=== PATIENT | male | born 1965 | race Caucasian/White ===

== ENCOUNTER → 2017-01-29 | Outpatient (CLI) | payer OTHER ==
[~2017-01-29] MED LIST: AMOX500C3 PO; AMOX875T PO; ASPI81TA28 PO; ATOR-22 PO; CALCCHW17 PO; CLC/300 PO; ERGO500037 PO; GABA-113 PO; GLIP-199 PO; HYDR-3419 PO; HYDR-4330 PO; INSDGI SC; INSDGIPEN SC; LISI-461 PO; METF-384 PO; METO25TA56 PO; MULT-506 PO; NRN/600 PO; NVLG SC; NVLGI/PEN SC; PENI-73 PO; PENI-82 PO; PRAV20TA PO; RANI150T3 PO; SIMV20TA2 PO; SULF800T23 PO
--- NOTE | 2017-01-29 16:33 | DIAGNOSTIC IMAGING REPORT ---
RIGHT FOOT MIN 3 VIEWS ROUTINE CLINICAL HISTORY: NON-HEALING WOUND ON RIGHT FOOT Right COMPARISON: None. DISCUSSION: The bones and joint spaces appear intact. There is no evidence of fracture, dislocation or bony disease. There is no evidence for soft tissue swelling. IMPRESSION: Negative study. Electronically signed by: Valeriy Dutta M.D. 01/29/2017 4:32 PM Dictated Date/Time: 01/29/2017 4:30 PM
== END | disposition home or self-care (01) ==
LOC: C.RAD 16:09
PROVIDERS: ATTEND Emergency Medicine
DX: S91.309A Unspecified open wound, unspecified foot, initial encounter (principal); X58.XXXA Exposure to other specified factors, initial encounter

== ENCOUNTER → 2017-03-13 | Outpatient (CLI) | payer OTHER ==
[~2017-03-13] MED LIST changes: +CHOL1CAP95 PO; -CLC/300 PO; +VANC1INJ72 IV
--- NOTE | 2017-03-13 17:19 | DIAGNOSTIC IMAGING REPORT ---
LUMBAR SPINE 5 VIEWS HISTORY: BACK PAIN, WENT TO LAB FIRST COMPARISON: None. FINDINGS: There is no fracture. No subluxation. Mild disc space throughout the lumbar spine. Mild facet degenerative changes seen within the lower lumbar spine. Small endplate osteophytes seen throughout the lumbar spine. IMPRESSION: No fracture or subluxation within the lumbar spine. Mild degenerative disc disease throughout the lumbar spine. Electronically signed by: Hector Rasheed M.D. 03/13/2017 5:17 PM Dictated Date/Time: 03/13/2017 5:15 PM
[2017-03-13 17:39] LABS: BASO % 0.6 %; BASO ABS # 0.05 K/uL (0-0.2); COMPLETE YES; EOS % 1.4 %; HEMATOCRIT 44.6 % (42-52); IG% 0.2 %; LYMPH % 38.8 %; LYMPH ABS # 3.41 K/uL (1.2-3.4); MEAN CELL VOLUME 96.1 fL (80-100); MEAN CORPUSCULAR HEMOGLOBIN 34.1 pg (25-34); MEAN CORPUSCULAR HGB CONC 35.4 g/dl (32-36); MEAN PLATELET VOLUME 10.5 fL (7.4-10.4); MONO % 5.6 %; NEUT % 53.4 %; PLATELET COUNT 195 K/uL (130-400); RED BLOOD COUNT 4.64 M/uL (4.7-6.1); WHITE BLOOD COUNT 8.78 K/uL (4.8-10.8)
[2017-03-13 17:57] LABS: ALT/SGPT 68 U/L (12-78); BLOOD UREA NITROGEN 17 mg/dl (7-18); BUN/CREATININE RATIO 17.7 (10-20); CARBON DIOXIDE 28 mmol/L (21-32); CHLORIDE 100 mmol/L (98-107); CHOLESTEROL 174 mg/dl (0-200); CREATININE 0.94 mg/dl (0.60-1.40); GLUCOSE 231 mg/dl (70-99); SODIUM 136 mmol/L (136-145)
[2017-03-13 18:00] LABS: ALB/GLOB RATIO 1.1 (0.9-2); ALKALINE PHOSPHATASE 77 U/L (45-117); AST/SGOT 28 U/L (15-37); CHOLESTEROL/HDL RATIO 3.3; HDL CHOLESTEROL 52 mg/dl; LDL CHOLESTEROL CALCULATED 88 mg/dl; TRIGLYCERIDES 170 mg/dl (0-150); VERY LOW DENSITY LIPOPROT CALC 34 mg/dl
[2017-03-13 18:07] LABS: CALCIUM 9.6 mg/dl (8.5-10.1)
[2017-03-13 18:33] LABS: RATIO 58.4 mcg/mg (0-30.0)
[2017-03-14 06:51] LABS: ESTIMATED AVERAGE GLUCOSE 258 mg/dl; HA1C FLAG Normal (Normal)
== END | disposition home or self-care (01) ==
LOC: C.LAB 16:34
DX: M54.5 Low back pain (principal); K21.9 Gastro-esophageal reflux disease without esophagitis; F32.9 Major depressive disorder, single episode, unspecified; E11.9 Type 2 diabetes mellitus without complications; E78.5 Hyperlipidemia, unspecified; I10 Essential (primary) hypertension; G62.9 Polyneuropathy, unspecified

== ENCOUNTER 2017-03-25 09:31 | Emergency (ER) | payer OTHER ==
[~2017-03-25] VITALS: Ht 195.6 cm; Wt 107.5 kg
[~2017-03-25 09:31] MED LIST changes: -AMOX875T PO; -ASPI81TA28 PO; -ATOR-22 PO; -CALCCHW17 PO; -CHOL1CAP95 PO; -ERGO500037 PO; -HYDR-4330 PO; -INSDGI SC; -INSDGIPEN SC; -LISI-461 PO; -METF-384 PO; -METO25TA56 PO; -MULT-506 PO; -NRN/600 PO; -NVLG SC; -NVLGI/PEN SC; -PENI-73 PO; -PENI-82 PO; -PRAV20TA PO; -RANI150T3 PO; -SULF800T23 PO; -VANC1INJ72 IV
[2017-03-25 09:38] VITALS: Ht 195.6 cm; Wt 107.5 kg
[2017-03-25 10:00] VITALS: O2SAT 99
[2017-03-25] MEDS ORDERED: NITROGLYCERIN 0.4 MG SL PER TAB CHARGE SL STA (10:46)
[2017-03-25] MEDS ORDERED: ASPIRIN 324 MG CHEW PO STA (10:46)
[2017-03-25 10:56] LABS: BASO % 0.4 %; BASO ABS # 0.03 K/uL (0-0.2); COMPLETE YES; EOS % 0.7 %; HEMATOCRIT 46.4 % (42-52); IG% 0.1 %; LYMPH % 30.7 %; LYMPH ABS # 2.32 K/uL (1.2-3.4); MEAN CELL VOLUME 96.5 fL (80-100); MEAN CORPUSCULAR HEMOGLOBIN 33.5 pg (25-34); MEAN CORPUSCULAR HGB CONC 34.7 g/dl (32-36); MEAN PLATELET VOLUME 10.1 fL (7.4-10.4); MONO % 6.6 %; NEUT % 61.5 %; PLATELET COUNT 226 K/uL (130-400); RED BLOOD COUNT 4.81 M/uL (4.7-6.1); WHITE BLOOD COUNT 7.56 K/uL (4.8-10.8)
[2017-03-25 11:06] LABS: ALT/SGPT 65 U/L (12-78); AST/SGOT 22 U/L (15-37); BLOOD UREA NITROGEN 12 mg/dl (7-18); BUN/CREATININE RATIO 10.7 (10-20); CALCIUM 9.3 mg/dl (8.5-10.1); CARBON DIOXIDE 30 mmol/L (21-32); CHLORIDE 103 mmol/L (98-107); GLUCOSE 214 mg/dl (70-99); INR 0.9 (0.9-1.1); POTASSIUM 4.1 mmol/L (3.5-5.1); SODIUM 138 mmol/L (136-145)
[2017-03-25 11:09] LABS: URINE APPEARANCE CLEAR (CLEAR); URINE BILIRUBIN NEG (NEG); URINE COLOR DK YELLOW; URINE NITRITE NEG (NEG); URINE PH 5.5 (4.5-7.5); URINE SPECIFIC GRAVITY 1.033 (1.000-1.030); UROBILINOGEN NEG (NEG); ZZUR CULT IF INDIC CLEAN CATCH NO
[2017-03-25 11:15] LABS: MANUAL MICROSCOPIC REQUIRED? NO; REVIEW REQ? NO
[2017-03-25 11:16] LABS: ALB/GLOB RATIO 1.2 (0.9-2); ALKALINE PHOSPHATASE 78 U/L (45-117); C-REACTIVE PROTEIN 0.44 mg/dl (0-0.29); THYROID STIMULATING HORMONE 0.781 uIu/ml (0.300-4.500)
--- NOTE | 2017-03-25 11:17 | DIAGNOSTIC IMAGING REPORT ---
CHEST ONE VIEW PORTABLE CLINICAL HISTORY: chest pain dyspnea COMPARISON STUDY: No previous studies for comparison. FINDINGS: The bones soft tissues and hemidiaphragms are normal. The cardiomediastinal silhouette is normal. The lungs are clear. The pulmonary vasculature is normal. IMPRESSION: Negative chest. Electronically signed by: Valeriy Dutta M.D. 03/25/2017 11:16 AM Dictated Date/Time: 03/25/2017 11:16 AM
--- NOTE | 2017-03-25 11:21 | EMERGENCY ROOM VISIT NOTE ---
History First contact with patient: 10:25 Chief Complaint: CARDIAC ASSESSMENT Stated Complaint: TIGHTNESS IN CHEST Nursing Triage Summary: Patient c/o mid chest tightness for 1 hours. SOB, Nausea, dizziness 10/10. Now 5/10. "I can feel my blood pressure is rosa because I have pressure in my face. Face red History of Present Illness The patient is a 52 year old male who presents to the Emergency Room with complaints of chest pain. The patient states that he developed chest pain approximately 90 minutes ago. He states that he describes it as a squeezing or pressure. He rates his discomfort a 5/10. The pain does not radiate. The patient states he had associated dizziness and headache. He states he also felt palpitations. He reported feeling some shortness of breath. He denies any earache, sore throat, cough or fever. He denies any abdominal pain, nausea or vomiting. The patient is a diabetic and has hypertension, hyperlipidemia and is a smoker. His father and brother of congestive heart failure. He believes he had a normal stress test a few years ago. Review of Systems A 10 system review of systems was completed with positives and pertinent negatives listed in the HPI. Past Medical/Surgical History Medical Problems: (1) Diabetes (2) Hyperlipidemia (3) Hypertension (4) Neuropathy Social History Smoking Status: Current Every Day Smoker Drug Use: none, marijuana Marital Status: Occupation Status: disabled Current/Historical Medications Scheduled Amoxicillin (Amoxil), 500 MG PO TID Aspirin (Aspirin Ec), 81 MG PO DAILY Gabapentin (Neurontin), 600 MG PO BID Glipizide (Glipizide Er), 10 MG PO BID Lisinopril (Lisinopril), 10 MG PO BID Metformin Hcl (Glucophage), 1,000 MG PO BID Metoprolol Tartrate (Lopressor) (Lopressor), 25 MG PO BID Ranitidine Hcl (Zantac), 150 MG PO BID Simvastatin (Zocor), 20 MG PO DAILY Scheduled PRN Hydrocodon/Acetaminophen 5MG/300MG (Vicodin (5MG/300MG)), 1 TAB PO Q6H PRN for Pain Allergies Coded Allergies: Ciprofloxacin (Verified Allergy, Intermediate, shortness of breath, 03/25/17 ) Physical Exam Vital Signs Date Time Temp Pulse Resp B/P Pulse Ox O2 Delivery O2 Flow Rate FiO2 03/25/17 13:06 92 18 128/79 100 03/25/17 12:25 93 18 137/74 98 Room Air 03/25/17 11:35 85 18 113/79 99 Room Air 03/25/17 11:22 90 18 127/75 97 Room Air 03/25/17 11:17 89 18 136/83 98 Room Air 03/25/17 11:11 84 18 153/91 99 Room Air 03/25/17 10:47 87 18 144/91 98 Room Air 03/25/17 10:00 84 18 153/94 98 Room Air 03/25/17 10:00 99 Room Air 03/25/17 09:55 84 03/25/17 09:42 100 Room Air 03/25/17 09:38 36.8 86 16 162/90 99 Room Air Physical Exam VITALS: Vitals are noted on the nurse's note and reviewed by myself. Vital signs stable. The patient is afebrile. He is not tachycardic, tachypneic or hypoxic. GENERAL: This is a 52-year-old male, in no acute distress, nondiaphoretic, well- developed well-nourished. SKIN: The skin was without rashes, erythema, edema, or bruising. There is no tenting of the skin. Capillary reflex less than 2 seconds. HEAD: Normocephalic atraumatic. EARS: The external ears are normal in appearance. EYES: Pupils equal round and reactive to light and accommodation. Conjunctivae without injection, sclerae without icterus. Extraocular movements intact. NOSE: Patent, turbinates without inflammation or discharge. MOUTH: Mucous membranes moist. Tonsils are not enlarged. Pharynx without erythema or exudate. Uvula midline. Airway patent. Tongue does not deviate. NECK: Supple without nuchal rigidity. No lymphadenopathy. No thyromegaly. Cervical spine is nontender. No JVD. HEART: Regular rate and rhythm without murmurs gallops or rubs. LUNGS: Clear to auscultation bilaterally without wheezes, rales or rhonchi. No retractions or accessory muscle use. ABDOMEN: Positive bowel sounds x 4. Soft, nontender, without masses or organomegaly. MUSCULOSKELETAL: No muscle atrophy, erythema, or edema noted. Full range of motion in all extremities. Normal gait. Strength 5/5 throughout. NEURO: Patient was alert and oriented to person place and time. No focal neurological deficits. Medical Decision & Procedures ER Provider Diagnostic Interpretation: CHEST ONE VIEW PORTABLE CLINICAL HISTORY: chest pain dyspnea COMPARISON STUDY: No previous studies for comparison. FINDINGS: The bones soft tissues and hemidiaphragms are normal. The cardiomediastinal silhouette is normal. The lungs are clear. The pulmonary vasculature is normal. IMPRESSION: Negative chest. Laboratory Results 03/25/17 09:54 Red Blood Count 4.81, Mean Corpuscular Volume 96.5, Mean Corpuscular Hemoglobin 33.5, Mean Corpuscular Hemoglobin Concent 34.7, Mean Platelet Volume 10.1, Neutrophils (%) (Auto) 61.5, Lymphocytes (%) (Auto) 30.7, Monocytes (%) (Auto) 6.6, Eosinophils (%) (Auto) 0.7, Basophils (%) (Auto) 0.4, Neutrophils # (Auto) 4.65, Lymphocytes # (Auto) 2.32, Monocytes # (Auto) 0.50, Eosinophils # (Auto) 0.05, Basophils # (Auto) 0.03 03/25/17 09:54 Test 03/25/17 09:54 03/25/17 12:30 White Blood Count 7.56 K/uL (4.8-10.8) Red Blood Count 4.81 M/uL (4.7-6.1) Hemoglobin 16.1 g/dL (14.0-18.0) Hematocrit 46.4 % (42-52) Mean Corpuscular Volume 96.5 fL (80-100) Mean Corpuscular Hemoglobin 33.5 pg (25-34) Mean Corpuscular Hemoglobin Concent 34.7 g/dl (32-36) Platelet Count 226 K/uL (130-400) Mean Platelet Volume 10.1 fL (7.4-10.4) Neutrophils (%) (Auto) 61.5 % Lymphocytes (%) (Auto) 30.7 % Monocytes (%) (Auto) 6.6 % Eosinophils (%) (Auto) 0.7 % Basophils (%) (Auto) 0.4 % Neutrophils # (Auto) 4.65 K/uL (1.4-6.5) Lymphocytes # (Auto) 2.32 K/uL (1.2-3.4) Monocytes # (Auto) 0.50 K/uL (0.11-0.59) Eosinophils # (Auto) 0.05 K/uL (0-0.5) Basophils # (Auto) 0.03 K/uL (0-0.2) RDW Standard Deviation 44.4 fL (36.4-46.3) RDW Coefficient of Variation 12.6 % (11.5-14.5) Immature Granulocyte % (Auto) 0.1 % Immature Granulocyte # (Auto) 0.01 K/uL (0.00-0.02) Prothrombin Time 10.0 SECONDS (9.0-12.0) Prothromb Time International Ratio 0.9 (0.9-1.1) Activated Partial Thromboplast Time 26.7 SECONDS (21.0-31.0) Partial Thromboplastin Ratio 1.0 Urine Color DK YELLOW Urine Appearance CLEAR (CLEAR) Urine pH 5.5 (4.5-7.5) Urine Specific [place] 1.033 (1.000-1.030) Urine Protein NEG (NEG) Urine Glucose (UA) 3+ (NEG) Urine Ketones 1+ (NEG) Urine Occult Blood NEG (NEG) Urine Nitrite NEG (NEG) Urine Bilirubin NEG (NEG) Urine Urobilinogen NEG (NEG) Urine Leukocyte Esterase NEG (NEG) Anion Gap 5.0 mmol/L (3-11) Est Creatinine Clear Calc Drug Dose 108.4 ml/min Estimated GFR () 89.6 Estimated GFR (Non- 77.3 BUN/Creatinine Ratio 10.7 (10-20) Calcium Level 9.3 mg/dl (8.5-10.1) Total Bilirubin 0.7 mg/dl (0.2-1) Aspartate Amino Transf (AST/SGOT) 22 U/L (15-37) Alanine Aminotransferase (ALT/SGPT) 65 U/L (12-78) Alkaline Phosphatase 78 U/L (45-117) Total Creatine Kinase 149 U/L (39-308) Creatine Kinase MB 1.3 ng/ml (0.5-3.6) Creatine Kinase MB Ratio (0-3.0) C-Reactive Protein 0.44 mg/dl (0-0.29) Total Protein 8.2 gm/dl (6.4-8.2) Albumin 4.4 gm/dl (3.4-5.0) Globulin 3.8 gm/dl (2.5-4.0) Albumin/Globulin Ratio 1.2 (0.9-2) Thyroid Stimulating Hormone (TSH) 0.781 uIu/ml (0.300-4.500) Troponin I < 0.015 ng/ml (0-0.045) Medications Administered Medications (Trade) Dose Ordered Sig/Maylin Route Start Time Stop Time Status Last Admin Dose Admin Aspirin (Aspirin Chew) 324 mg NOW STAT PO 03/25/17 10:46 03/25/17 10:49 DC 03/25/17 10:57 324 MG Nitroglycerin (Nitrostat Tab) 0.4 mg PRN STAT SL 03/25/17 10:46 03/25/17 10:49 DC 03/25/17 10:58 0.4 MG Procedure The patient was monitored on a laboratory monitor. They maintained a normal sinus rhythm without ectopy. ECG Indication: chest pain Rate (beats per minute): 84 Rhythm: normal sinus Findings: no acute ischemic change Comparison ECG Date: no prior available ED Course The patient was seen and examined. Previous visits were reviewed. The patient does not have a fever or leukocytosis. He does not have any significant electrolyte abnormalities. Glucose is 214. He does have a history of diabetes. Initial and repeat troponins were negative. TSH was within normal limits. INR was 0.9. Ketones were found in the urine. Chest x-ray does not reveal any acute abnormality EKG does not reveal any acute arrhythmia or ischemia The patient presents to the emergency department with chest pressure that started approximately 90 minutes prior to arrival. He was given aspirin and nitroglycerin. The nitroglycerin relieved his pain. The patient is a smoker with a history of diabetes, hypertension and hyperlipidemia. He does have a family history of CHF and cardiac disease. Given this, I highly recommended that the patient be admitted to the hospital for further evaluation and management. The patient stated that he would not stay in the hospital. He stated he wanted to be able to go outside to smoke. I advised him that he would not be able to in the hospital. I then at least encouraged repeating a troponin and potentially speaking to cardiology for a possible stress test. The patient states that he cannot walk on a treadmill due to an ulcer on his foot. I talked about the possibility of a dobutamine stress test. The patient refuses this and states that he does not want a chemical stress test. At this time, the patient at least agreed to having a repeat troponin drawn. This was done and was negative. I again attempted to talk to the patient about staying in the hospital for further evaluation and management given his presentation, relief with nitroglycerin and significant risk factors. Again the patient refuses. He signed out AGAINST MEDICAL ADVICE. I advised him that the potential for cardiac disease, pulmonary issue or even is quite possible and he acknowledges understanding and would still like to sign out AGAINST MEDICAL ADVICE. He was advised to follow-up with his family doctor for further evaluation and management. He should return to the ER if any worsening symptoms. The case was discussed with Dr. Guillory who agrees with the assessment and treatment plan. Medical Decision DIFFERENTIAL DIAGNOSIS: Aortic dissection, myocarditis, pericarditis, cervical disc disease, costochondritis, herpes zoster, rib fracture, pleuritis, pneumonia , pulmonary embolus, tension pneumothorax, anxiety disorder, somatoform disorder , choledocholithiasis, status, esophagitis, esophageal spasm, esophageal reflux , esophageal rupture, pancreatitis, peptic ulcer disease, cardiac ischemia, ST elevation [place], acute coronary syndrome, arrhythmia, coronary artery vasospasm. vavular heart disease, coronary artery disease, among others. Impression Primary Impression: Substernal chest pain Departure Information Referrals Marcelo Landeros III, CRNP (PCP) Patient Instructions My [facility]
[2017-03-25 13:06] VITALS: BP 128/79; PULSE 92; O2SAT 100
[2017-04-04] MEDS ORDERED: HYDR-4330 PO (07:46)
[2017-04-04] MEDS ORDERED: PRAV20TA PO (07:46)
[2017-04-07] MEDS ORDERED: PENI-73 PO (11:29)
[2017-05-16] MEDS ORDERED: INSDGI SC (13:44)
[2017-05-16] MEDS ORDERED: ERGO500037 PO (13:44)
[2017-06-03] MEDS ORDERED: NVLG SC (08:50)
[2017-06-05] MEDS ORDERED: SULF800T23 PO (14:24)
[2017-06-05] MEDS ORDERED: PENI-82 PO (14:24)
[2017-07-31] MEDS ORDERED: CALCCHW17 PO (07:46)
[2017-07-31] MEDS ORDERED: MULT-506 PO (07:46)
[2017-07-31] MEDS ORDERED: NRN/600 PO (07:46)
[2017-07-31] MEDS ORDERED: RANI150T3 PO (14:24)
[2017-07-31] MEDS ORDERED: ASPI81TA28 PO (14:25)
[2017-07-31] MEDS ORDERED: METF-384 PO (14:25)
[2017-07-31] MEDS ORDERED: METO25TA56 PO (14:25)
[2017-07-31] MEDS ORDERED: LISI-461 PO (14:25)
[2017-09-01] MEDS ORDERED: CHOL1CAP95 PO (14:49)
[2017-09-01] MEDS ORDERED: INSDGI SC (14:49)
[2017-10-22] MEDS ORDERED: VANC1INJ72 IV (09:00)
== END 2017-03-25 13:08 | disposition left against medical advice (07) ==
LOC: C.EDB 09:33
DX: R07.2 Precordial pain (principal); R42 Dizziness and giddiness; R51 Headache; E11.9 Type 2 diabetes mellitus without complications; E78.5 Hyperlipidemia, unspecified; I10 Essential (primary) hypertension; Z79.82 Long term (current) use of aspirin; Z79.84 Long term (current) use of oral hypoglycemic drugs; Z79.899 Other long term (current) drug therapy; Z82.49 Family history of ischemic heart disease and other diseases of the circulatory system; F17.200 Nicotine dependence, unspecified, uncomplicated

== ENCOUNTER → 2017-04-03 | Outpatient (CLI) | payer OTHER ==
[~2017-04-03] MED LIST changes: +AMOX875T PO; +ASPI81TA28 PO; +ATOR-22 PO; +CALCCHW17 PO; +CHOL1CAP95 PO; +ERGO500037 PO; +HYDR-4330 PO; +INSDGI SC; +INSDGIPEN SC; +LISI-461 PO; +METF-384 PO; +METO25TA56 PO; +MULT-506 PO; +NRN/600 PO; +NVLG SC; +NVLGI/PEN SC; +PENI-73 PO; +PENI-82 PO; +PRAV20TA PO; +RANI150T3 PO; +SULF800T23 PO; +VANC1INJ72 IV
== END | disposition home or self-care (01) ==
LOC: C.LAB 13:20
PROVIDERS: ATTEND Physician Assistant
DX: Z13.9 Encounter for screening, unspecified (principal)

== ENCOUNTER → 2017-04-11 | Day surgery (SDC) | payer OTHER ==
[2017-04-04 07:51] VITALS: Ht 195.6 cm; Wt 109.1 kg
[~2017-04-11] VITALS: Ht 195.6 cm; Wt 109.1 kg
[~2017-04-11] MED LIST changes: -AMOX500C3 PO; +FENTANYL CITRATE INJ 50 MCG/1 ML 2 ML VIAL ONE; -GABA-113 PO; -HYDR-3419 PO; +LIDOCAINE HCL 2% 2 ML VIAL (20MG/ML) ONE; +MIDAZOLAM HCL 1 MG/ML 2ML VIAL ONE; +ONDANSETRON INJ 2 MG/ML 2 ML VIAL ONE; +PROPOFOL IV EMULSION 10 MG/ML 20 ML VIAL IV ONE; -SIMV20TA2 PO; +SODIUM CHLORIDE 0.9% 500ML 500 ML IV ONE
[2017-04-11 11:21] VITALS: TEMP 36.9
--- NOTE | 2017-04-11 11:56 | Endo History and Physical ---
History & Physical Date of Service: April 11, 2017. Chief Complaint: ACID REFLUX Referring Physician: Marcelo Landeros History of Present Illness 52 yo CM who presents for EGD secondary to GERD. Past Surgical History Hx Cardiac Surgery: No Hx Internal Defibrillator: No Hx Pacemaker: No Hx Abdominal Surgery: Yes (INGUINAL HERNIA REPAIR) Hx of Implantable Prosthesis: No Hx Post-Op Nausea and Vomiting: Yes Hx Cancer Surgery: No Hx Thoracic Surgery: No Hx Orthopedic: No Hx Urinary Tract Surgery: No Family History Polyp Social History Smoking Status: Current Every Day Smoker Hx Substance Use: No Hx Alcohol Use: No Allergies Coded Allergies: Ciprofloxacin (Verified Allergy, Intermediate, shortness of breath, ) Current Medications Reported Home Medications Medications Dose Route/Sig Max Daily Dose Days Date Category Veetids (Penicillin V Potassium) 250 Mg Tab 500 Mg PO QID 10 04/07/17 Reported Multivitamin (Multivitamins) Tab 1 Tab PO DAILY 04/04/17 Reported Lortab 5-325 mg (Hydrocodone-Acetaminophen) 1 Tab Tab 1-2 Tabs PO Q6 PRN 04/04/17 Reported Pravachol (Pravastatin Sodium) 20 Mg Tab 20 Mg PO QPM 04/04/17 Reported Tums Ultra 1000 (Calcium Carbonate (Antacid)) 1,000 Mg Chw 1 Tab PO UD PRN 04/04/17 Reported Neurontin (Gabapentin) 600 Mg Tab 600 Mg PO BID 04/04/17 Reported Lopressor (Metoprolol Tartrate) 25 Mg Tab 25 Mg PO BID 01/22/17 Reported Lisinopril 10 Mg Tab 10 Mg PO QAM 01/22/17 Reported Aspirin Ec (Aspirin) 81 Mg Tab 81 Mg PO QPM 01/22/17 Reported Glucophage (Metformin Hcl) 1,000 Mg Tab 1,000 Mg PO BID 01/22/17 Reported Glipizide Er (Glipizide) 10 Mg Tab 10 Mg PO BID 01/22/17 Reported Zantac (Ranitidine HCl) 150 Mg Tab 150 Mg PO BID 01/22/17 Reported Vital Signs Weight (Kilograms): 109.09 Height (Feet): 6 Height (Inches): 5 Date Time Temp Pulse Resp B/P Pulse Ox O2 Delivery O2 Flow Rate FiO2 04/11/17 11:21 36.9 102 20 131/86 97 Room Air Physical Exam General Appearance: WD/WN, no apparent distress Respiratory/Chest: Auscultation: breath sounds normal Cardiovascular: Heart Auscultation: RRR Abdomen: Bowel Sounds: normal Inspection & Palpation: soft, non-distended, no tenderness, guarding & rebound Assessment and Plan Assessment: 52 yo CM who presents for EGD secondary to GERD. Plan: Proceed with EGD.
--- NOTE | 2017-04-11 12:22 | Discharge Instructions ---
Endoscopy Patient Instructions Date / Procedure(s) Performed April 11, 2017. EGD Allergy Information Coded Allergies: Ciprofloxacin (Verified Allergy, Intermediate, shortness of breath, ) Discharge Date / Findings April 11, 2017. Gastritis s/p biopsies Hiatal hernia Esophageal biopsies Medication Instructions Restart Stopped Medication(s): OK to resume all medications today as prescribed Reported Home Medications Medications Dose Route/Sig Max Daily Dose Days Date Category Veetids (Penicillin V Potassium) 250 Mg Tab 500 Mg PO QID 10 04/07/17 Reported Multivitamin (Multivitamins) Tab 1 Tab PO DAILY 04/04/17 Reported Lortab 5-325 mg (Hydrocodone-Acetaminophen) 1 Tab Tab 1-2 Tabs PO Q6 PRN 04/04/17 Reported Pravachol (Pravastatin Sodium) 20 Mg Tab 20 Mg PO QPM 04/04/17 Reported Tums Ultra 1000 (Calcium Carbonate (Antacid)) 1,000 Mg Chw 1 Tab PO UD PRN 04/04/17 Reported Neurontin (Gabapentin) 600 Mg Tab 600 Mg PO BID 04/04/17 Reported Lopressor (Metoprolol Tartrate) 25 Mg Tab 25 Mg PO BID 01/22/17 Reported Lisinopril 10 Mg Tab 10 Mg PO QAM 01/22/17 Reported Aspirin Ec (Aspirin) 81 Mg Tab 81 Mg PO QPM 01/22/17 Reported Glucophage (Metformin Hcl) 1,000 Mg Tab 1,000 Mg PO BID 01/22/17 Reported Glipizide Er (Glipizide) 10 Mg Tab 10 Mg PO BID 01/22/17 Reported Zantac (Ranitidine HCl) 150 Mg Tab 150 Mg PO BID 01/22/17 Reported Provider Instructions Activity Restrictions - No exercising or heavy lifting for 24 hours. - Do not drink alcohol the day of the procedure. - Do not drive a car or operate machinery until the day after the procedure. - Do not make any important decisions or sign important papers in 24 hours after the procedure. Following Day: - Return to full activity which may include returning to work/school. Diet Start your diet with liquids and light foods (jello, soup, juice, toast). Then eat your usual diet if not nauseated. Treatment For Common After Affects For mild abdominal pain, bloating, or excessive gas: - Rest - Eat lightly - Lie on right side Follow-Up Information Follow-up with as scheduled Anesthesia Information What You Should Know You have had a procedure that required some medicine to reduce anxiety and discomfort. This treatment is called moderate sedation. After receiving the treatment, you may be sleepy, but you will be able to breathe on your own. The effects of the treatment may last for several hours. Follow these instructions along with Activity/Diet recommendations noted above: * Do NOT do anything where dizziness or clumsiness would be dangerous. * Rest quietly at home today, then you can be up and about tomorrow. * Have a responsible person stay with you the rest of today. * You may have had an I.V. today. If so, you may take the dressing off later today. Recommendations Call your doctor if: * Trouble breathing * Continuous vomiting for more than 24 hours * Temperature above 101 degrees * Severe abdominal pain or bloating * Pain not relieved by pain medicine ordered * There is increased drainage or redness from any incision * A large amount of rectal bleeding greater than 2-3 tablespoons. (If you had a polyp/s removed or have hemorrhoids, a small amount of blood - from the rectum is to be expected.) * You have any unanswered questions or concerns. IN THE EVENT OF A SERIOUS EMERGENCY, GO TO THE NEAREST EMERGENCY ROOM Your discharge instructions were prepared by provider Ady Hernandez. Patient Instructions Signature Page Tal Mendoza Patient (or Guardian) Signature/Date: I have read and understand the instructions given to me by my caregivers. Caregiver/RN/Doctor Signature/Date: The above-named patient and/or guardian has received patient instructions on this date. + Original Patient Signature Page (only) stays with chart. Please make copy for patient.
--- NOTE | 2017-04-11 12:22 | GI REPORT ---
Procedure Date: 04/11/2017 11:57 AM Procedure: Upper GI endoscopy Indications: Esophageal reflux Medicines: Monitored Anesthesia Care Complications: No immediate complications. Estimated Blood Loss: Estimated blood loss: none. Procedure: Pre-Anesthesia Assessment: - Prior to the procedure, a History and Physical was performed, and patient medications and allergies were reviewed. The patient's tolerance of previous anesthesia was also reviewed. The risks and benefits of the procedure and the sedation options and risks were discussed with the patient. All questions were answered, and informed consent was obtained. Prior Anticoagulants: The patient has taken no previous anticoagulant or antiplatelet agents. ASA Grade Assessment: II - A patient with mild systemic disease. After reviewing the risks and benefits, the patient was deemed in satisfactory condition to undergo the procedure. After obtaining informed consent, the endoscope was passed under direct vision. Throughout the procedure, the patient's blood pressure, pulse, and oxygen saturations were monitored continuously. The scope was introduced through the mouth, and advanced to the second part of duodenum. The upper GI endoscopy was accomplished without difficulty. The patient tolerated the procedure well. Findings: There were esophageal mucosal changes suspicious for short-segment Knight's esophagus present at the gastroesophageal junction. The maximum longitudinal extent of these mucosal changes was 2 cm in length. Mucosa was biopsied with a cold forceps for histology. One specimen bottle was sent to pathology. A small hiatus hernia was present. Localized mild inflammation characterized by erythema was found in the gastric antrum. Biopsies were taken with a cold forceps for histology. The examined duodenum was normal. Impression: - Esophageal mucosal changes suspicious for short-segment Knight's esophagus. Biopsied. - Small hiatus hernia. - Gastritis. Biopsied. - Normal examined duodenum. Recommendation: - Resume previous diet. - Continue present medications. - Await pathology results. - Return to GI office as previously scheduled. Ady Hernandez DO 04/11/2017 12:21:44 PM This report has been signed electronically. Note Initiated On: 04/11/2017 11:57 AM I attest to the content of the Intraoperative Record and orders documented therein, exceptions below
[2017-04-11 12:44] VITALS: BP 130/88; PULSE 90; O2SAT 96
--- NOTE | 2017-04-11 13:43 | Anesthesiology Progress Note ---
Anesthesia Post Op Note Date & Time April 11, 2017 at 13:43 Vital Signs Pain Intensity: 0 Vital Signs Past 12 Hours Date Time Temp Pulse Resp B/P Pulse Ox O2 Delivery O2 Flow Rate FiO2 04/11/17 12:44 90 20 130/88 96 Room Air 04/11/17 12:32 89 20 105/76 96 Room Air 04/11/17 12:25 92 20 130/85 97 Room Air 04/11/17 12:17 90 20 119/74 98 Diffusion Mask 04/11/17 11:21 36.9 102 20 131/86 97 Room Air Notes Mental Status: alert / awake / arousable, participated in evaluation Pt Amnestic to Procedure: Yes Nausea / Vomiting: adequately controlled Pain: adequately controlled Airway Patency, RR, SpO2: stable & adequate BP & HR: stable & adequate Hydration State: stable & adequate Anesthetic Complications: no major complications apparent
== END | disposition home or self-care (01) ==
LOC: C.GI 10:48
PROVIDERS: ATTEND Internal Medicine
DX: K21.9 Gastro-esophageal reflux disease without esophagitis (principal); K29.60 Other gastritis without bleeding; K44.9 Diaphragmatic hernia without obstruction or gangrene; F17.200 Nicotine dependence, unspecified, uncomplicated; Z79.82 Long term (current) use of aspirin

== ENCOUNTER → 2017-05-09 | Outpatient (CLI) | payer OTHER ==
[~2017-05-09] MED LIST changes: -FENTANYL CITRATE INJ 50 MCG/1 ML 2 ML VIAL ONE; -LIDOCAINE HCL 2% 2 ML VIAL (20MG/ML) ONE; -MIDAZOLAM HCL 1 MG/ML 2ML VIAL ONE; -ONDANSETRON INJ 2 MG/ML 2 ML VIAL ONE; -PENI-73 PO; -PROPOFOL IV EMULSION 10 MG/ML 20 ML VIAL IV ONE; -SODIUM CHLORIDE 0.9% 500ML 500 ML IV ONE
[2017-05-09 18:35] LABS: RATIO 26.2 mcg/mg (0-30.0)
== END | disposition home or self-care (01) ==
LOC: C.LABPVFM 13:35
PROVIDERS: ATTEND Nurse Practitioner Adult Health
DX: E11.40 Type 2 diabetes mellitus with diabetic neuropathy, unspecified (principal); E11.65 Type 2 diabetes mellitus with hyperglycemia; E78.5 Hyperlipidemia, unspecified; I10 Essential (primary) hypertension; M79.1 Myalgia

== ENCOUNTER → 2017-06-10 | Outpatient (CLI) | payer OTHER ==
[~2017-06-10] MED LIST changes: -GLIP-199 PO; -PRAV20TA PO; -VANC1INJ72 IV
[2017-06-10 18:25] LABS: BLOOD UREA NITROGEN 16 mg/dl (7-18)
== END | disposition home or self-care (01) ==
LOC: C.LABPVFM 15:05
PROVIDERS: ATTEND Emergency Medicine
DX: S91.301A Unspecified open wound, right foot, initial encounter (principal); X58.XXXA Exposure to other specified factors, initial encounter

== ENCOUNTER → 2017-06-13 | Outpatient (CLI) | payer OTHER ==
[~2017-06-13] MED LIST changes: +GADAVIST IV PRN
--- NOTE | 2017-06-13 11:53 | DIAGNOSTIC IMAGING REPORT ---
RIGHT LOWER EXT NONJOINT COMBO HISTORY: 52 years-old Male nonhealing wound of the right foot COMPARISON: Right foot radiographs 3 2016 TECHNIQUE: Multiplanar multisequence MRI of the right foot was obtained both with and without the use of 10.5 mL Gadavist. FINDINGS: There is a marker on the skin at site of ulcer which is seen at the level of the second metatarsal phalangeal joint with focal area of enhancing thickened skin with fluid is seen tracking along the Peroneus longus tendon at the level of the midfoot, only partially imaged. Increased T2/STIR signal measuring up to 1.3 x 2.1 cm in transverse and AP dimension respectively. There is a moderate amount of adjacent subcutaneous edema as well without signal abnormality, fracture or erosive changes seen within the adjacent second metatarsal head. There is a moderate amount of edema within the intrinsic plantar musculature of the foot along with associated moderate intrinsic muscular atrophy. No focal soft tissue collections are identified. There is mild first MTP joint and multidigit interphalangeal degenerative changes present. Small first MTP joint effusion is seen with associated multiple hammertoe deformities. IMPRESSION: 1. Small enhancing soft tissue ulcer of the plantar foot at the level of the second metatarsal head suggests cellulitis without associated marrow edema or evidence of osteomyelitis. 2. Moderate amount of edema within the intrinsic plantar musculature of the foot along with associated moderate muscular atrophy are nonspecific findings and may reflect myositis on a background of chronic denervation related atrophic changes. 3. Multifocal degenerative changes throughout the forefoot as above. The above report was generated using voice recognition software. It may contain grammatical, syntax or spelling errors. Electronically signed by: Milo Costa M.D. 06/13/2017 11:51 AM Dictated Date/Time: 06/13/2017 11:38 AM
== END | disposition home or self-care (01) ==
LOC: C.MRI 10:12
PROVIDERS: ATTEND Emergency Medicine
DX: L97.919 Non-pressure chronic ulcer of unspecified part of right lower leg with unspecified severity (principal); R60.0 Localized edema

== ENCOUNTER 2017-07-31 16:43 | Emergency (ER) | payer OTHER ==
[~2017-07-31] VITALS: Ht 195.6 cm; Wt 110.7 kg
[~2017-07-31 16:43] MED LIST changes: -AMOX875T PO; -ATOR-22 PO; -CHOL1CAP95 PO; -GADAVIST IV PRN; -INSDGIPEN SC; -NVLGI/PEN SC
[2017-07-31 16:45] VITALS: TEMP 36.9; Ht 195.6 cm; Wt 110.7 kg
[2017-07-31] MEDS ORDERED: ONDANSETRON INJ 2 MG/ML 2 ML VIAL IV STA (17:09)
[2017-07-31] MEDS ORDERED: SODIUM CHLORIDE 0.9% 1000ML 1,000 ML IV STA (17:09)
[2017-07-31] MEDS ORDERED: AMPICILLIN/SULBACTAM SOD INJ 3,000 MG in SODIUM CHLORIDE 0.9% 100ML 100 ML IV ONE (17:15)
[2017-07-31] MEDS: MoRPHine SULFATE 4 MG/ML 1 ML CARP\\VIAL IV PRN ×2 (17:30→18:32)
[2017-07-31 17:45] LABS: BASO % 0.1 %; BASO ABS # 0.01 K/uL (0-0.2); COMPLETE YES; HEMATOCRIT 46.9 % (42-52); IG% 0.2 %; LYMPH % 21.6 %; LYMPH ABS # 2.01 K/uL (1.2-3.4); MEAN CELL VOLUME 98.1 fL (80-100); MEAN CORPUSCULAR HEMOGLOBIN 34.7 pg (25-34); MEAN CORPUSCULAR HGB CONC 35.4 g/dl (32-36); MEAN PLATELET VOLUME 9.9 fL (7.4-10.4); MONO % 7.9 %; NEUT % 69.2 %; PLATELET COUNT 233 K/uL (130-400); RED BLOOD COUNT 4.78 M/uL (4.7-6.1); WHITE BLOOD COUNT 9.32 K/uL (4.8-10.8)
[2017-07-31] MEDS ORDERED: NVLGI/PEN SC (17:45)
[2017-07-31] MEDS ORDERED: INSDGIPEN SC (17:45)
[2017-07-31] MEDS ORDERED: ATOR-22 PO (17:45)
--- NOTE | 2017-07-31 17:58 | DIAGNOSTIC IMAGING REPORT ---
LEFT HAND 3 VIEWS HISTORY: left hand cat bite cellulitis COMPARISON: None. FINDINGS: There is no fracture or dislocation. Soft tissue swelling at the thenar region near the base of the thumb. No radiopaque foreign bodies. IMPRESSION: Soft tissue swelling near the base of the thumb. No fractures or radiopaque foreign bodies. Electronically signed by: Hector Rasheed M.D. 07/31/2017 5:57 PM Dictated Date/Time: 07/31/2017 5:55 PM
[2017-07-31 18:02] LABS: CALCIUM 11.1 mg/dl (8.5-10.1); CREATININE 1.1 mg/dl (0.60-1.40); POTASSIUM 4.5 mmol/L (3.5-5.1)
[2017-07-31] MEDS ORDERED: RABIES VACCINE (IMOVAX) HUMAN DIPL CELL 2.5 INTER.UNIT/ML SYR IM. ONE (18:45)
[2017-07-31] MEDS ORDERED: RABIES IMMUNE GLOBULIN (HUMAN) 150 INTER.UNIT/ML 2 ML VIAL IM. ONE (18:45)
[2017-07-31] MEDS ORDERED: SEPTRA DS HOME PACK 1 EA VIAL PO ONE (19:00)
[2017-07-31] MEDS ORDERED: ONDANSETRON HOME PACK 4MG OD TAB PO ONE (19:00)
[2017-07-31] MEDS ORDERED: AMOXICIL/CLAVU 875MG HOME PACK PO ONE (19:00)
[2017-07-31] MEDS ORDERED: NORCO 5/325MG HOME PACK PO ONE (19:00)
[2017-07-31] MEDS ORDERED: SULF800T23 PO (19:19)
[2017-07-31] MEDS ORDERED: AMOX875T PO (19:19)
[2017-07-31 19:31] VITALS: BP 163/75; PULSE 102; O2SAT 96
--- NOTE | 2017-07-31 21:39 | EMERGENCY ROOM VISIT NOTE ---
History Report prepared by Shannen: Carlos Cooper Under the Supervision of: Dr. Quinn Abraham M.D. First contact with patient: 16:52 Chief Complaint: EDEMA TO EXTREMITY Stated Complaint: HAND SWOLLEN History of Present Illness The patient is a 52 year old diabetic male who presents to the Emergency Room with complaints of worsening left hand pain that started 5 days ago. He says that he was [place] around 10 [place], and was bit by a cat on his left hand. The patient states that it is unknown whether the cat is owned by the people who own the farm, or if it is a wild stray outdoor cat. He notes that he did not have any issues for a week, but around 5 days ago, he started having worsening swelling, redness itchiness and extreme pain on his left hand and forearm. The patient adds that he has had persistent nausea, with episodes of vomiting and diarrhea today. He is unsure whether his illness today is related with the cat bite. The patient says that he did not take any medications for the pain today. He notes that his sugar was 267 this morning, which is atypically high for him. His last tetanus shot was in 2012. Pt denies LOC, headache, visual changes, neck pain, chest pain, breathing difficulties, abdominal pain, back pain, numbness, weakness, open wounds, active bleeding, or other complaints. Source of History: patient Onset: 5 days ago Position: hand (left) Symptom Intensity: extreme pain Quality: other (swelling, redness, itchiness, pain) Timing: worsening Associated Symptoms: + nausea, + vomiting, + diarrhea Note: Associated symptoms: Worsening redness, swelling, itchiness, pain on left forearm in addition to left hand. Review of Systems See HPI for pertinent positives and negatives. A total of ten systems were reviewed and were otherwise negative. Past Medical & Surgical Medical Problems: (1) Diabetes (2) Diabetic foot ulcer associated with type 1 diabetes mellitus (3) Diabetic peripheral neuropathy associated with type 1 diabetes mellitus (4) Hyperlipidemia (5) Hypertension (6) Loss of sensation (7) Neuropathy Family History Diabetes mellitus Heart disease Hypertension Kidney disease Lung disease Social History Smoking Status: Current Every Day Smoker Drug Use: none, marijuana Marital Status: Occupation Status: disabled Current/Historical Medications Scheduled Amoxicillin & Pot Clavulanate (Augmentin 875-125 mg), 875 MG PO BID Aspirin (Aspirin Ec), 81 MG PO QPM Atorvastatin (Lipitor), 20 MG PO DAILY Gabapentin (Neurontin), 600 MG PO BID Insulin Aspart (Novolog Flexpen), 10 UNITS SC AC Insulin Glargine (Lantus Solostar), 65 UNITS SC QPM Lisinopril (Lisinopril), 10 MG PO QAM Metformin Hcl (Glucophage), 1,000 MG PO BID Metoprolol Tartrate (Lopressor) (Lopressor), 25 MG PO BID Multivitamin (Multivitamin), 1 TAB PO DAILY Ranitidine Hcl (Zantac), 150 MG PO BID Sulfa/Trimethoprim (Bactrim Ds 800MG/160MG), 1 TAB PO BID Scheduled PRN Calcium Carbonate (Antacid) (Tums Ultra 1000), 1,000 MG PO UD PRN for Indigestion Allergies Coded Allergies: Ciprofloxacin (Verified Allergy, Intermediate, shortness of breath, ) Physical Exam Vital Signs Date Time Temp Pulse Resp B/P (MAP) Pulse Ox O2 Delivery O2 Flow Rate FiO2 07/31/17 19:31 102 18 163/75 96 07/31/17 16:45 36.9 124 20 167/112 99 Room Air Physical Exam GENERAL: Awake, alert, uncomfortable-appearing, in no distress HENT: Normocephalic, atraumatic. Oropharynx unremarkable. EYES: Normal conjunctiva. Sclera non-icteric. NECK: Supple. No nuchal rigidity. FROM. No JVD. RESPIRATORY: Clear to auscultation. CARDIAC: Tachycardic rate, normal rhythm. Extremities warm and well perfused. Pulses equal. ABDOMEN: Soft, non-distended. No tenderness to palpation. No rebound or guarding. No masses. RECTAL: Deferred. MUSCULOSKELETAL: There is swelling and redness in the mid-dorsal left forearm. There is redness and swelling over the left hand hypothenar eminence. Chest examination reveals no tenderness. The back is symmetrical on inspection without obvious abnormality. There is no CVA tenderness to palpation. LOWER EXTREMITIES: Calves are equal size bilaterally and non-tender. No edema. No discoloration. NEURO: Normal sensorium. No sensory or motor deficits noted. SKIN: No rash or jaundice noted. Medical Decision & Procedures ER Provider Diagnostic Interpretation: X-ray: Per my interpretation, radiologist review. LEFT HAND 3 VIEWS HISTORY: left hand cat bite cellulitis COMPARISON: None. FINDINGS: There is no fracture or dislocation. Soft tissue swelling at the thenar region near the base of the thumb. No radiopaque foreign bodies. IMPRESSION: Soft tissue swelling near the base of the thumb. No fractures or radiopaque foreign bodies. Electronically signed by: Hector Rasheed M.D. 07/31/2017 5:57 PM Dictated Date/Time: 07/31/2017 5:55 PM Laboratory Results 07/31/17 17:20 Red Blood Count 4.78, Mean Corpuscular Volume 98.1, Mean Corpuscular Hemoglobin 34.7, Mean Corpuscular Hemoglobin Concent 35.4, Mean Platelet Volume 9.9, Neutrophils (%) (Auto) 69.2, Lymphocytes (%) (Auto) 21.6, Monocytes (%) (Auto) 7.9, Eosinophils (%) (Auto) 1.0, Basophils (%) (Auto) 0.1, Neutrophils # (Auto) 6.45, Lymphocytes # (Auto) 2.01, Monocytes # (Auto) 0.74, Eosinophils # (Auto) 0.09, Basophils # (Auto) 0.01 07/31/17 17:20 Test 07/31/17 17:20 07/31/17 17:37 White Blood Count 9.32 K/uL (4.8-10.8) Red Blood Count 4.78 M/uL (4.7-6.1) Hemoglobin 16.6 g/dL (14.0-18.0) Hematocrit 46.9 % (42-52) Mean Corpuscular Volume 98.1 fL (80-100) Mean Corpuscular Hemoglobin 34.7 pg (25-34) Mean Corpuscular Hemoglobin Concent 35.4 g/dl (32-36) Platelet Count 233 K/uL (130-400) Mean Platelet Volume 9.9 fL (7.4-10.4) Neutrophils (%) (Auto) 69.2 % Lymphocytes (%) (Auto) 21.6 % Monocytes (%) (Auto) 7.9 % Eosinophils (%) (Auto) 1.0 % Basophils (%) (Auto) 0.1 % Neutrophils # (Auto) 6.45 K/uL (1.4-6.5) Lymphocytes # (Auto) 2.01 K/uL (1.2-3.4) Monocytes # (Auto) 0.74 K/uL (0.11-0.59) Eosinophils # (Auto) 0.09 K/uL (0-0.5) Basophils # (Auto) 0.01 K/uL (0-0.2) RDW Standard Deviation 46.4 fL (36.4-46.3) RDW Coefficient of Variation 13.0 % (11.5-14.5) Immature Granulocyte % (Auto) 0.2 % Immature Granulocyte # (Auto) 0.02 K/uL (0.00-0.02) Anion Gap 8.0 mmol/L (3-11) Est Creatinine Clear Calc Drug Dose 109.8 ml/min Estimated GFR () 89.6 Estimated GFR (Non- 77.3 BUN/Creatinine Ratio 13.0 (10-20) Calcium Level 11.1 mg/dl (8.5-10.1) Total Bilirubin 1.2 mg/dl (0.2-1) Direct Bilirubin 0.3 mg/dl (0-0.2) Aspartate Amino Transf (AST/SGOT) 18 U/L (15-37) Alanine Aminotransferase (ALT/SGPT) 28 U/L (12-78) Alkaline Phosphatase 101 U/L (45-117) Total Protein 8.6 gm/dl (6.4-8.2) Albumin 4.1 gm/dl (3.4-5.0) Bedside Lactic Acid Venous 1.23 mmol/L (0.90-1.70) Laboratory results reviewed by me Medications Administered Medications (Trade) Dose Ordered Sig/Maylin Route Start Time Stop Time Status Last Admin Dose Admin Ampicillin Sodium/ Sulbactam Sodium 3000 mg/Sodium Chloride 108 ml @ 200 mls/hr ONE ONCE IV 07/31/17 17:15 07/31/17 17:47 DC 07/31/17 17:30 200 MLS/HR Sodium Chloride 1,000 ml @ 999 mls/hr Q1H1M STAT IV 07/31/17 17:09 07/31/17 18:09 DC 07/31/17 17:31 999 MLS/HR Ondansetron HCl (Zofran Inj) 4 mg NOW STAT IV 07/31/17 17:09 07/31/17 17:13 DC 07/31/17 17:29 4 MG Morphine Sulfate (MoRPHine SULFATE INJ) 4 mg Q15M PRN IV 07/31/17 17:15 07/31/17 20:02 DC 07/31/17 18:32 4 MG Amoxicillin/ Clavulanate Potassium (Augmentin 875MG Home Pack) 1 homepack UD ONCE PO 07/31/17 19:00 07/31/17 19:02 DC 07/31/17 19:00 1 HOMEPACK Trimethoprim/ Sulfamethoxazole (Sulfameth/ Trimeth Ds 800/ 160MG Home Pack) 1 homepack UD ONCE PO 07/31/17 19:00 07/31/17 19:02 DC 07/31/17 19:00 1 HOMEPACK Ondansetron HCl (ZOFRAN ODT 4MG Home Pack) 1 homepack UD ONCE PO 07/31/17 19:00 07/31/17 19:02 DC 07/31/17 19:00 1 HOMEPACK Acetaminophen/ Hydrocodone Bitart (Mozier 5/325mg Home Pack) 1 homepack UD ONCE PO 07/31/17 19:00 07/31/17 19:02 DC 07/31/17 19:00 1 HOMEPACK ED Course 1701: The patient was evaluated in room C6. A complete history and physical exam was performed. 1709: Ordered Zofran Inj 4 mg IV, NSS 1000 ml @ 999 mls/hr IV. 1715: Ordered Morphine Sulfate Inj 4 mg IV PRN, Ampicillin Sodium/Sulbactam Sodium 3000 mg/Sodium Chloride 108 ml @ 200 mls/hr IV. 1831: I reevaluated the patient and he is feeling a lot better. He got a second dose of Morphine. 185: I reevaluated the patient and he says that he just got a call from the dentist/owner of the cat. The cat has been vaccinated and is still healthy. 1900: Ordered Mozier 5/325mg Home Pack 1 homepack PO, Zofran ODT 4MG Home Pack 1 homepack PO, Sulfameth/Trimeth Ds 800/160MG Home Pack 1 homepack PO, Augmentin 875MG Home Pack 1 homepack PO. 1904: I reevaluated the patient and he is resting comfortably. Discussed results and discharge instructions: he verbalized understanding and agreement. The patient is ready for discharge. Medical Decision Prior records reviewed and summarized as above. Triage Nursing notes reviewed and agree them. Additional history obtained from the family. The patient's history was concerning for swelling and redness of the hand Differential diagnosis: Etiologies such as cellulitis, DVT, necrotizing fasciitis, abscess, MRSA infection, dermatitis, drug eruption, as well as others were entertained.. Physical examination: The physical examination was consistent with mild cellulitis. The patient does not have any findings consistent with tenosynovitis. He has no sausage appearance of his digits. He has no pain with passive movement of the fingers. No crepitus. Neurovascularly intact. ER treatment provided: IV Zofran IV hydration IV morphine 2 IV Unasyn On reassessment the patient felt much better. He is tolerating oral fluids without difficulty. Diagnostics interpreted by me: The labs revealed an unremarkable CBC and chemistry panel except for mild hyperglycemia Imaging studies: X-ray as above. No retained radiopaque foreign body. No subcutaneous air. This appears to be isolated cellulitis. From a cat bite. The patient initially did not know the situation behind the animal and I discussed rabies prophylaxis with him. This was agreed upon and ordered however just prior to administration the patient was able to get in touch with the animal's dentist/owner. The animal has received rabies immunization and is currently healthy. There was no sign of illness of the animals. The patient wishes to hold off on the immunizations given this new information. He is going to visit with the dentist/owner tomorrow to verify this information. If there are any questions or the animals or ill he will come back to the emergency department for reevaluation and treatment. Given the scratches and bites and his diabetic status the patient will be treated with Bactrim and Augmentin. If he worsens in any way he will be back. By the evaluation outlined above emergent etiologies such as abscess, necrotizing fasciitis, DVT, rabies exposure, as well as others were deemed relatively unlikely. The patient and family were informed about the findings as listed above. All questions were answered and they were pleased with the treatment. Return instructions were outlined and the patient was discharged in stable condition. Outpatient prescription management: Zofran home pack Mozier home pack Augmentin Bactrim Referral: The patient was referred back to his primary care physician for follow-up in 2 to 3 days for a recheck of the current condition. Medication Reconcilliation Current Medication List: was personally reviewed by me Blood Pressure Screening Patient's blood pressure: Elevated blood pressure Blood pressure disposition: Referred to PCP Impression Primary Impression: Cellulitis Additional Impression: Cat bite Scribe Attestation The scribe's documentation has been prepared under my direction and personally reviewed by me in its entirety. I confirm that the note above accurately reflects all work, treatment, procedures, and medical decision making performed by me. Departure Information Dispostion Home / Self-Care Prescriptions Amoxicillin & Pot Clavulanate (Augmentin 875-125 mg) 1 Tab Tab 875 MG PO BID for 9 Days, #18 TAB Prov: Quinn Abraham MD 07/31/17 Sulfa/Trimethoprim (Bactrim Ds 800MG/160MG) Tab 1 TAB PO BID, #18 TAB Prov: Quinn Abraham MD 07/31/17 Referrals No Doctor, Assigned (PCP) Marcelo Landeros III, CRNP Patient Instructions [facility] Additional Instructions CELLULITIS INSTRUCTIONS: Trimethoprim-Sulfamethoxazole(Bactrim DS): Take one pill twice daily for 10 days for your skin infection. All antibiotics can cause diarrhea. If this occurs and you feel worse or it does not resolve in 1-2 days follow up with your doctor or return to the Emergency Department as this could be signs of serious underlying problems. Any medication can cause an allergic reaction, stop the pills immediately and return to the ER for rash, hives, breathing difficulties, or swelling. Amoxicillin Clavulanate (Augmentin) 875mg: Take one pill twice daily for 10 days for your infection. All antibiotics can cause diarrhea. If this occurs and you feel worse or it does not resolve in 1-2 days follow up with your doctor or return to the Emergency Department as this could be signs of serious underlying problems. Any medication can cause an allergic reaction, stop the pills immediately and return to the ER for rash, hives, breathing difficulties, or swelling. Hydrocodone/acetaminophen 5/325mg: Take 1-2 pills every 6 hours as needed for pain. Avoid additional Acetaminophen/Tylenol, alcohol, operating machinery or dangerous equipment, working on ladders or roofs, DRIVING, or situations where being under the influence may be dangerous. Zofran 4 mg oral dissolving tablets: take one tablet and allow it to melt in your mouth every 4 hours as needed for nausea. Ibuprofen(Motrin, Advil) may be used for fever or pain. Use 600mg every six hours as needed. Take with food. Avoid using more than 2400mg in a 24 hour period. Do not use 2400mg per day for more than three consecutive days without physician direction. Prolonged inappropriate use can lead to stomach upset or ulcers. (AND/OR) Acetaminophen(Tylenol) may be used for fever or pain. Use 1000mg every six hours as needed. Avoid using more than 4000mg in a 24 hour period. Warm compresses to the affected area 4 times daily for 15-20 minutes. Rest and drink plenty of fluids. Continue current medications. Return to the ER for severe pain, persistent fevers, spreading redness, vomiting , or any worsening of your condition. Follow up with your primary physician Friday as scheduled for a recheck of the current condition. Make sure that the animal immunizations are verified and that it is healthy. If the animal is ill it needs to be seen by a vet. If you cannot verify the safety and health of the animal return to the Emergency Room tomorrow for rabies shots. Problem Qualifiers
--- NOTE | 2017-08-01 10:29 | EMERGENCY ROOM VISIT NOTE ---
ED Visit Note Received phone call from pharmacy regarding potential interaction of hyperkalemia with bactrim and lisinopril. I checked the patient's potassium which was drawn yesterday, which was 4.5. I requested that the pharmacist ask the patient to follow-up with his PCP next week to have K+ re-checked and to take Bactrim as prescribed. Current/Historical Medications Scheduled Amoxicillin & Pot Clavulanate (Augmentin 875-125 mg), 875 MG PO BID Aspirin (Aspirin Ec), 81 MG PO QPM Atorvastatin (Lipitor), 20 MG PO DAILY Gabapentin (Neurontin), 600 MG PO BID Insulin Aspart (Novolog Flexpen), 10 UNITS SC AC Insulin Glargine (Lantus Solostar), 65 UNITS SC QPM Lisinopril (Lisinopril), 10 MG PO QAM Metformin Hcl (Glucophage), 1,000 MG PO BID Metoprolol Tartrate (Lopressor) (Lopressor), 25 MG PO BID Multivitamin (Multivitamin), 1 TAB PO DAILY Ranitidine Hcl (Zantac), 150 MG PO BID Sulfa/Trimethoprim (Bactrim Ds 800MG/160MG), 1 TAB PO BID Scheduled PRN Calcium Carbonate (Antacid) (Tums Ultra 1000), 1,000 MG PO UD PRN for Indigestion Allergies Coded Allergies: Ciprofloxacin (Verified Allergy, Intermediate, shortness of breath, ) Vital Signs Date Time Temp Pulse Resp B/P (MAP) Pulse Ox O2 Delivery O2 Flow Rate FiO2 07/31/17 19:31 102 18 163/75 96 07/31/17 16:45 36.9 124 20 167/112 99 Room Air Laboratory Results 07/31/17 17:20 Red Blood Count 4.78, Mean Corpuscular Volume 98.1, Mean Corpuscular Hemoglobin 34.7, Mean Corpuscular Hemoglobin Concent 35.4, Mean Platelet Volume 9.9, Neutrophils (%) (Auto) 69.2, Lymphocytes (%) (Auto) 21.6, Monocytes (%) (Auto) 7.9, Eosinophils (%) (Auto) 1.0, Basophils (%) (Auto) 0.1, Neutrophils # (Auto) 6.45, Lymphocytes # (Auto) 2.01, Monocytes # (Auto) 0.74, Eosinophils # (Auto) 0.09, Basophils # (Auto) 0.01 07/31/17 17:20 Test 07/31/17 17:20 07/31/17 17:37 White Blood Count 9.32 K/uL (4.8-10.8) Red Blood Count 4.78 M/uL (4.7-6.1) Hemoglobin 16.6 g/dL (14.0-18.0) Hematocrit 46.9 % (42-52) Mean Corpuscular Volume 98.1 fL (80-100) Mean Corpuscular Hemoglobin 34.7 pg (25-34) Mean Corpuscular Hemoglobin Concent 35.4 g/dl (32-36) Platelet Count 233 K/uL (130-400) Mean Platelet Volume 9.9 fL (7.4-10.4) Neutrophils (%) (Auto) 69.2 % Lymphocytes (%) (Auto) 21.6 % Monocytes (%) (Auto) 7.9 % Eosinophils (%) (Auto) 1.0 % Basophils (%) (Auto) 0.1 % Neutrophils # (Auto) 6.45 K/uL (1.4-6.5) Lymphocytes # (Auto) 2.01 K/uL (1.2-3.4) Monocytes # (Auto) 0.74 K/uL (0.11-0.59) Eosinophils # (Auto) 0.09 K/uL (0-0.5) Basophils # (Auto) 0.01 K/uL (0-0.2) RDW Standard Deviation 46.4 fL (36.4-46.3) RDW Coefficient of Variation 13.0 % (11.5-14.5) Immature Granulocyte % (Auto) 0.2 % Immature Granulocyte # (Auto) 0.02 K/uL (0.00-0.02) Anion Gap 8.0 mmol/L (3-11) Est Creatinine Clear Calc Drug Dose 109.8 ml/min Estimated GFR () 89.6 Estimated GFR (Non- 77.3 BUN/Creatinine Ratio 13.0 (10-20) Calcium Level 11.1 mg/dl (8.5-10.1) Total Bilirubin 1.2 mg/dl (0.2-1) Direct Bilirubin 0.3 mg/dl (0-0.2) Aspartate Amino Transf (AST/SGOT) 18 U/L (15-37) Alanine Aminotransferase (ALT/SGPT) 28 U/L (12-78) Alkaline Phosphatase 101 U/L (45-117) Total Protein 8.6 gm/dl (6.4-8.2) Albumin 4.1 gm/dl (3.4-5.0) Bedside Lactic Acid Venous 1.23 mmol/L (0.90-1.70) Medications Administered Medications (Trade) Dose Ordered Sig/Maylin Route Start Time Stop Time Status Last Admin Dose Admin Ampicillin Sodium/ Sulbactam Sodium 3000 mg/Sodium Chloride 108 ml @ 200 mls/hr ONE ONCE IV 07/31/17 17:15 07/31/17 17:47 DC 07/31/17 17:30 200 MLS/HR Sodium Chloride 1,000 ml @ 999 mls/hr Q1H1M STAT IV 07/31/17 17:09 07/31/17 18:09 DC 07/31/17 17:31 999 MLS/HR Ondansetron HCl (Zofran Inj) 4 mg NOW STAT IV 07/31/17 17:09 07/31/17 17:13 DC 07/31/17 17:29 4 MG Morphine Sulfate (MoRPHine SULFATE INJ) 4 mg Q15M PRN IV 07/31/17 17:15 07/31/17 20:02 DC 07/31/17 18:32 4 MG Amoxicillin/ Clavulanate Potassium (Augmentin 875MG Home Pack) 1 homepack UD ONCE PO 07/31/17 19:00 07/31/17 19:02 DC 07/31/17 19:00 1 HOMEPACK Trimethoprim/ Sulfamethoxazole (Sulfameth/ Trimeth Ds 800/ 160MG Home Pack) 1 homepack UD ONCE PO 07/31/17 19:00 07/31/17 19:02 DC 07/31/17 19:00 1 HOMEPACK Ondansetron HCl (ZOFRAN ODT 4MG Home Pack) 1 homepack UD ONCE PO 07/31/17 19:00 07/31/17 19:02 DC 07/31/17 19:00 1 HOMEPACK Acetaminophen/ Hydrocodone Bitart ([place] 5/325mg Home Pack) 1 homepack UD ONCE PO 07/31/17 19:00 07/31/17 19:02 DC 07/31/17 19:00 1 HOMEPACK Departure Information Impression Primary Impression: Cellulitis Additional Impression: Cat bite Dispostion Home / Self-Care Condition GOOD Prescriptions Amoxicillin & Pot Clavulanate (Augmentin 875-125 mg) 1 Tab Tab 875 MG PO BID for 9 Days, #18 TAB Prov: Quinn Abraham MD 07/31/17 Sulfa/Trimethoprim (Bactrim Ds 800MG/160MG) Tab 1 TAB PO BID, #18 TAB Prov: Quinn Abraham MD 07/31/17 Referrals Marcelo Landeros III, CRNP (PCP) No Doctor, Assigned Forms WORK / SCHOOL INSTRUCTIONS, HOME CARE DOCUMENTATION FORM, Days off work : 2 IMPORTANT VISIT INFORMATION Patient Instructions [facility] Additional Instructions CELLULITIS INSTRUCTIONS: Trimethoprim-Sulfamethoxazole(Bactrim DS): Take one pill twice daily for 10 days for your skin infection. All antibiotics can cause diarrhea. If this occurs and you feel worse or it does not resolve in 1-2 days follow up with your doctor or return to the Emergency Department as this could be signs of serious underlying problems. Any medication can cause an allergic reaction, stop the pills immediately and return to the ER for rash, hives, breathing difficulties, or swelling. Amoxicillin Clavulanate (Augmentin) 875mg: Take one pill twice daily for 10 days for your infection. All antibiotics can cause diarrhea. If this occurs and you feel worse or it does not resolve in 1-2 days follow up with your doctor or return to the Emergency Department as this could be signs of serious underlying problems. Any medication can cause an allergic reaction, stop the pills immediately and return to the ER for rash, hives, breathing difficulties, or swelling. Hydrocodone/acetaminophen 5/325mg: Take 1-2 pills every 6 hours as needed for pain. Avoid additional Acetaminophen/Tylenol, alcohol, operating machinery or dangerous equipment, working on ladders or roofs, DRIVING, or situations where being under the influence may be dangerous. Zofran 4 mg oral dissolving tablets: take one tablet and allow it to melt in your mouth every 4 hours as needed for nausea. Ibuprofen(Motrin, Advil) may be used for fever or pain. Use 600mg every six hours as needed. Take with food. Avoid using more than 2400mg in a 24 hour period. Do not use 2400mg per day for more than three consecutive days without physician direction. Prolonged inappropriate use can lead to stomach upset or ulcers. (AND/OR) Acetaminophen(Tylenol) may be used for fever or pain. Use 1000mg every six hours as needed. Avoid using more than 4000mg in a 24 hour period. Warm compresses to the affected area 4 times daily for 15-20 minutes. Rest and drink plenty of fluids. Continue current medications. Return to the ER for severe pain, persistent fevers, spreading redness, vomiting , or any worsening of your condition. Follow up with your primary physician Friday as scheduled for a recheck of the current condition. Make sure that the animal immunizations are verified and that it is healthy. If the animal is ill it needs to be seen by a vet. If you cannot verify the safety and health of the animal return to the Emergency Room tomorrow for rabies shots. Problem Qualifiers
[2017-09-01] MEDS ORDERED: INSDGI SC (14:49)
[2017-09-01] MEDS ORDERED: CHOL1CAP95 PO (14:49)
== END 2017-07-31 19:34 | disposition home or self-care (01) ==
LOC: C.EDB 16:45 → C.EDC 19:34
DX: L03.114 Cellulitis of left upper limb (principal); W55.01XA Bitten by cat, initial encounter; E10.40 Type 1 diabetes mellitus with diabetic neuropathy, unspecified; E78.5 Hyperlipidemia, unspecified; I10 Essential (primary) hypertension; Z83.3 Family history of diabetes mellitus; Z82.49 Family history of ischemic heart disease and other diseases of the circulatory system; F17.210 Nicotine dependence, cigarettes, uncomplicated; F12.90 Cannabis use, unspecified, uncomplicated; Z79.82 Long term (current) use of aspirin; Z79.899 Other long term (current) drug therapy; Z79.4 Long term (current) use of insulin

== ENCOUNTER → 2017-08-13 | Outpatient (CLI) | payer OTHER ==
[~2017-08-13] MED LIST changes: +ATOR-22 PO; +CHOL1CAP95 PO; -ERGO500037 PO; -HYDR-4330 PO; +INSDGIPEN SC; -NVLG SC; +NVLGI/PEN SC; -PENI-82 PO
[2017-08-13 09:53] LABS: ESTIMATED AVERAGE GLUCOSE 157 mg/dl; HA1C FLAG Normal (Normal)
[2017-08-13 10:07] LABS: BLOOD UREA NITROGEN 15 mg/dl (7-18); BUN/CREATININE RATIO 13.2 (10-20); CALCIUM 9.4 mg/dl (8.5-10.1); CARBON DIOXIDE 26 mmol/L (21-32); CHLORIDE 103 mmol/L (98-107); CHOLESTEROL 126 mg/dl (0-200); GLUCOSE 177 mg/dl (70-99); POTASSIUM 4.2 mmol/L (3.5-5.1); SODIUM 137 mmol/L (136-145); TRIGLYCERIDES 134 mg/dl (0-150); VERY LOW DENSITY LIPOPROT CALC 27 mg/dl
[2017-08-13 10:10] LABS: CHOLESTEROL/HDL RATIO 3.1; HDL CHOLESTEROL 41 mg/dl; LDL CHOLESTEROL CALCULATED 58 mg/dl
== END | disposition home or self-care (01) ==
LOC: C.LAB 08:21
PROVIDERS: ATTEND Nurse Practitioner Adult Health
DX: E11.49 Type 2 diabetes mellitus with other diabetic neurological complication (principal); E11.65 Type 2 diabetes mellitus with hyperglycemia; E78.5 Hyperlipidemia, unspecified; I10 Essential (primary) hypertension; E55.9 Vitamin D deficiency, unspecified

== ENCOUNTER → 2017-09-10 | Day surgery (SDC) | payer OTHER ==
[2017-09-01 14:50] VITALS: Ht 195.6 cm; Wt 111.4 kg
[~2017-09-10] VITALS: Ht 195.6 cm; Wt 111.4 kg
[~2017-09-10] MED LIST changes: -INSDGIPEN SC; +LIDOCAINE HCL 2% 2 ML VIAL (20MG/ML) ONE; +PROPOFOL IV EMULSION 10 MG/ML 20 ML VIAL IV ONE; -SULF800T23 PO
--- NOTE | 2017-09-10 13:49 | Endo History and Physical ---
History & Physical Date of Service: Sep 10, 2017. Chief Complaint: screening Referring Physician: KRISTIN Ramos III History of Present Illness 52 yo CM who presents for screening colonoscopy. Past Surgical History Hx Cardiac Surgery: No Hx Internal Defibrillator: No Hx Pacemaker: No Hx Abdominal Surgery: Yes (INGUINAL HERNIA REPAIR) Hx Post-Op Nausea and Vomiting: No Hx Cancer Surgery: No Hx Thoracic Surgery: No Hx Orthopedic: No Hx Urinary Tract Surgery: No Family History Polyp Social History Smoking Status: Current Every Day Smoker Hx Substance Use: Yes (MARIJUANA OCCASIONALLY) Hx Alcohol Use: Yes (RARELY) Allergies Coded Allergies: Ciprofloxacin (Verified Allergy, Intermediate, shortness of breath, ) Current Medications Reported Home Medications Medications Dose Route/Sig Max Daily Dose Days Date Category Dose Instructions Vitamin D3 (Cholecalciferol) 50,000 Unit Cap 1 Cap PO WK 09/01/17 Reported Lantus (Insulin Glargine) 100 Unit/Ml Inj 65 Units SC QAM 09/01/17 Reported Lipitor (Atorvastatin Calcium) 20 Mg Tab 20 Mg PO QPM 07/31/17 Reported Novolog Flexpen (Insulin Aspart) 100 Units/Ml Inj 10 Units SC AC 07/31/17 Reported PLUS SLIDING SCALE DIRECTED Multivitamin (Multivitamins) Tab 1 Tab PO QAM 04/04/17 Reported Tums Ultra 1000 (Calcium Carbonate (Antacid)) 1,000 Mg Chw 1,000 Mg PO UD PRN 04/04/17 Reported Neurontin (Gabapentin) 600 Mg Tab 600 Mg PO BID 04/04/17 Reported Lopressor (Metoprolol Tartrate) 25 Mg Tab 25 Mg PO BID 01/22/17 Reported Lisinopril 10 Mg Tab 10 Mg PO QAM 01/22/17 Reported Aspirin Ec (Aspirin) 81 Mg Tab 81 Mg PO QPM 01/22/17 Reported Glucophage (Metformin Hcl) 1,000 Mg Tab 1,000 Mg PO BID 01/22/17 Reported Zantac (Ranitidine HCl) 150 Mg Tab 150 Mg PO BID 01/22/17 Reported Vital Signs Weight (Kilograms): 111.36 Height (Feet): 6 Height (Inches): 5 Date Time Temp Pulse Resp B/P (MAP) Pulse Ox O2 Delivery O2 Flow Rate FiO2 09/10/17 13:46 36.9 97 20 143/69 (93) 97 Room Air Physical Exam General Appearance: WD/WN, no apparent distress Respiratory/Chest: Auscultation: breath sounds normal Cardiovascular: Heart Auscultation: RRR Abdomen: Bowel Sounds: normal Inspection & Palpation: soft, non-distended, no tenderness, guarding & rebound Assessment and Plan Assessment: 52 yo CM who presents for screening colonoscopy. Plan: Proceed with colonoscopy.
--- NOTE | 2017-09-10 15:03 | Discharge Instructions ---
Endoscopy Patient Instructions Date / Procedure(s) Performed Sep 10, 2017. Colonoscopy Allergy Information Coded Allergies: Ciprofloxacin (Verified Allergy, Intermediate, shortness of breath, ) Discharge Date / Findings Sep 10, 2017. Colon polyps Diverticulosis Internal Hemorrhoids Medication Instructions Stopped Medication(s): last dose ASA and Glucophage Friday OK to resume all medications today as prescribed Reported Home Medications Medications Dose Route/Sig Max Daily Dose Days Date Category Dose Instructions Vitamin D3 (Cholecalciferol) 50,000 Unit Cap 1 Cap PO WK 09/01/17 Reported Lantus (Insulin Glargine) 100 Unit/Ml Inj 65 Units SC QAM 09/01/17 Reported Lipitor (Atorvastatin Calcium) 20 Mg Tab 20 Mg PO QPM 07/31/17 Reported Novolog Flexpen (Insulin Aspart) 100 Units/Ml Inj 10 Units SC AC 07/31/17 Reported PLUS SLIDING SCALE DIRECTED Multivitamin (Multivitamins) Tab 1 Tab PO QAM 04/04/17 Reported Tums Ultra 1000 (Calcium Carbonate (Antacid)) 1,000 Mg Chw 1,000 Mg PO UD PRN 04/04/17 Reported Neurontin (Gabapentin) 600 Mg Tab 600 Mg PO BID 04/04/17 Reported Lopressor (Metoprolol Tartrate) 25 Mg Tab 25 Mg PO BID 01/22/17 Reported Lisinopril 10 Mg Tab 10 Mg PO QAM 01/22/17 Reported Aspirin Ec (Aspirin) 81 Mg Tab 81 Mg PO QPM 01/22/17 Reported Glucophage (Metformin Hcl) 1,000 Mg Tab 1,000 Mg PO BID 01/22/17 Reported Zantac (Ranitidine HCl) 150 Mg Tab 150 Mg PO BID 01/22/17 Reported Provider Instructions Activity Restrictions - No exercising or heavy lifting for 24 hours. - Do not drink alcohol the day of the procedure. - Do not drive a car or operate machinery until the day after the procedure. - Do not make any important decisions or sign important papers in 24 hours after the procedure. Following Day: - Return to full activity which may include returning to work/school. Diet Start your diet with liquids and light foods (jello, soup, juice, toast). Then eat your usual diet if not nauseated. Treatment For Common After Affects For mild abdominal pain, bloating, or excessive gas: - Rest - Eat lightly - Lie on right side Follow-Up Information Follow-up with KRISTIN Ramos III as scheduled Anesthesia Information What You Should Know You have had a procedure that required some medicine to reduce anxiety and discomfort. This treatment is called moderate sedation. After receiving the treatment, you may be sleepy, but you will be able to breathe on your own. The effects of the treatment may last for several hours. Follow these instructions along with Activity/Diet recommendations noted above: * Do NOT do anything where dizziness or clumsiness would be dangerous. * Rest quietly at home today, then you can be up and about tomorrow. * Have a responsible person stay with you the rest of today. * You may have had an I.V. today. If so, you may take the dressing off later today. Recommendations Call your doctor if: * Trouble breathing * Continuous vomiting for more than 24 hours * Temperature above 101 degrees * Severe abdominal pain or bloating * Pain not relieved by pain medicine ordered * There is increased drainage or redness from any incision * A large amount of rectal bleeding greater than 2-3 tablespoons. (If you had a polyp/s removed or have hemorrhoids, a small amount of blood - from the rectum is to be expected.) * You have any unanswered questions or concerns. IN THE EVENT OF A SERIOUS EMERGENCY, GO TO THE NEAREST EMERGENCY ROOM Your discharge instructions were prepared by provider Ady Hernandez. Patient Instructions Signature Page Tal Mendoza Patient (or Guardian) Signature/Date: I have read and understand the instructions given to me by my caregivers. Caregiver/RN/Doctor Signature/Date: The above-named patient and/or guardian has received patient instructions on this date. + Original Patient Signature Page (only) stays with chart. Please make copy for patient.
--- NOTE | 2017-09-10 15:10 | GI REPORT ---
Procedure Date: 09/10/2017 1:50 PM Procedure: Colonoscopy Indications: Screening for colorectal malignant neoplasm Medicines: Monitored Anesthesia Care Complications: No immediate complications. Estimated Blood Loss: Estimated blood loss: none. Procedure: Pre-Anesthesia Assessment: - Prior to the procedure, a History and Physical was performed, and patient medications and allergies were reviewed. The patient's tolerance of previous anesthesia was also reviewed. The risks and benefits of the procedure and the sedation options and risks were discussed with the patient. All questions were answered, and informed consent was obtained. Prior Anticoagulants: The patient has taken aspirin, last dose was 2 days prior to procedure. ASA Grade Assessment: III - A patient with severe systemic disease. After reviewing the risks and benefits, the patient was deemed in satisfactory condition to undergo the procedure. After I obtained informed consent, the scope was passed under direct vision. Throughout the procedure, the patient's blood pressure, pulse, and oxygen saturations were monitored continuously. The scope was introduced through the anus and advanced to the terminal ileum. The colonoscopy was performed without difficulty. The patient tolerated the procedure well. The quality of the bowel preparation was good. The terminal ileum, ileocecal valve, appendiceal orifice, and rectum were photographed. Findings: A 6 mm polyp was found in the descending colon. The polyp was sessile. The polyp was removed with a hot snare. Resection and retrieval were complete. Two pedunculated polyps were found in the sigmoid colon. The polyps were 14 to 20 mm in size. These polyps were removed with a Epinephrine [id number] (4 ml) injection-lift technique using a hot snare. Resection was complete, and retrieval was complete. To prevent bleeding after the polypectomy, four hemostatic clips were successfully placed (MR conditional). There was no bleeding at the end of the procedure. Area was tattooed with an injection of 4 mL of Jacquelin ink. Multiple small-mouthed diverticula were found in the sigmoid colon. Non-bleeding internal hemorrhoids were found during retroflexion. The hemorrhoids were small. Impression: - One 6 mm polyp in the descending colon, removed with a hot snare. Resected and retrieved. - Two 14 to 20 mm polyps in the sigmoid colon, removed using injection-lift and a hot snare. Resected and retrieved. Clips (MR conditional) were placed. Tattooed. - Diverticulosis in the sigmoid colon. - Non-bleeding internal hemorrhoids. Recommendation: - Resume previous diet. - Continue present medications. - Repeat colonoscopy for surveillance based on pathology results. - Return to primary care physician as previously scheduled. Ady Hernandez, DO 09/10/2017 3:10:19 PM This report has been signed electronically. Note Initiated On: 09/10/2017 1:50 PM I attest to the content of the Intraoperative Record and orders documented therein, exceptions below
[2017-09-10 15:22] VITALS: BP 116/102; PULSE 82; O2SAT 98
--- NOTE | 2017-09-10 15:52 | Anesthesiology Progress Note ---
Anesthesia Post Op Note Date & Time Sep 10, 2017 at 15:51 Vital Signs Vital Signs Past 12 Hours Date Time Temp Pulse Resp B/P (MAP) Pulse Ox O2 Delivery O2 Flow Rate FiO2 09/10/17 15:22 82 20 116/102 (107) 98 Room Air 09/10/17 15:08 82 20 151/97 (115) 97 Room Air 09/10/17 14:57 78 20 116/71 (86) 95 Room Air 09/10/17 13:46 36.9 97 20 143/69 (93) 97 Room Air Notes Mental Status: alert / awake / arousable, participated in evaluation Pt Amnestic to Procedure: Yes Nausea / Vomiting: adequately controlled Pain: adequately controlled Airway Patency, RR, SpO2: stable & adequate BP & HR: stable & adequate Hydration State: stable & adequate Anesthetic Complications: no major complications apparent
== END | disposition home or self-care (01) ==
LOC: C.GI 12:52
PROVIDERS: ATTEND Internal Medicine
DX: Z12.11 Encounter for screening for malignant neoplasm of colon (principal); D12.4 Benign neoplasm of descending colon; D12.5 Benign neoplasm of sigmoid colon; K57.30 Diverticulosis of large intestine without perforation or abscess without bleeding; K64.8 Other hemorrhoids; Z83.71 Family history of colonic polyps; F17.200 Nicotine dependence, unspecified, uncomplicated; Z79.4 Long term (current) use of insulin; Z79.82 Long term (current) use of aspirin; Z79.899 Other long term (current) drug therapy

== ENCOUNTER → 2017-12-25 | Outpatient (CLI) | payer OTHER ==
[~2017-12-25] MED LIST changes: -LIDOCAINE HCL 2% 2 ML VIAL (20MG/ML) ONE; -PROPOFOL IV EMULSION 10 MG/ML 20 ML VIAL IV ONE
[2017-12-25 13:19] LABS: HEMOGLOBIN A1C 7.2 % (4.5-5.6)
[2017-12-25 13:44] LABS: ALBUMIN 3.9 gm/dl (3.4-5.0); BLOOD UREA NITROGEN 15 mg/dl (7-18); CALCIUM 9.9 mg/dl (8.5-10.1); CARBON DIOXIDE 28 mmol/L (21-32); CHOLESTEROL 126 mg/dl (0-200); CREATININE 1.09 mg/dl (0.60-1.40); GLUCOSE 101 mg/dl (70-99); POTASSIUM 4.4 mmol/L (3.5-5.1); SODIUM 136 mmol/L (136-145)
[2017-12-25 13:47] LABS: ALKALINE PHOSPHATASE 71 U/L (45-117); ALT/SGPT 38 U/L (12-78); AST/SGOT 17 U/L (15-37); LDL CHOLESTEROL CALCULATED 59 mg/dl; TOTAL PROTEIN 7.4 gm/dl (6.4-8.2)
== END | disposition home or self-care (01) ==
LOC: C.LABPVFM 12-24 13:56
PROVIDERS: ATTEND Nurse Practitioner Family
DX: E11.49 Type 2 diabetes mellitus with other diabetic neurological complication (principal); E11.65 Type 2 diabetes mellitus with hyperglycemia; E78.5 Hyperlipidemia, unspecified

== ENCOUNTER → 2018-01-22 | Outpatient (CLI) | payer OTHER ==
--- NOTE | 2018-01-22 16:09 | DIAGNOSTIC IMAGING REPORT ---
L-SPINE MIN 4 VIEWS ROUTINE CLINICAL HISTORY: M54.5 Low back [id number] COMPARISON STUDY: 03/13/2017 FINDINGS: No acute fractures or subluxations are visualized. There are mild to moderate multilevel degenerative changes. There is no pathologic bowel dilatation. IMPRESSION: Slight progression in the multilevel degenerative changes. No acute fractures or traumatic subluxations are visualized. Electronically signed by: Prasanth Lima M.D. 01/22/2018 4:08 PM Dictated Date/Time: 01/22/2018 4:07 PM
== END | disposition home or self-care (01) ==
LOC: C.RAD 15:09
PROVIDERS: ATTEND Nurse Practitioner Family
DX: M54.5 Low back pain (principal)